=== PATIENT | male | born 1980 | race Caucasian/White ===

== ENCOUNTER 2019-11-10 10:40 | Outpatient (RCR) | payer BC | END 2019-12-05 | disposition home or self-care (01) | LOC: WCC 10:40 | DX: L59.8 Other specified disorders of the skin and subcutaneous tissue related to radiation (principal); K62.7 Radiation proctitis; B20 Human immunodeficiency virus [HIV] disease; Z85.048 Personal history of other malignant neoplasm of rectum, rectosigmoid junction, and anus; R63.4 Abnormal weight loss | CPT/HCPCS: G0277; G0463; 99204 ==

== ENCOUNTER 2019-12-06 15:00 | Outpatient (RCR) | payer BC ==
[2019-12-24] MEDS ORDERED: MESALAMINE1 GM MC (15:39)
[2019-12-24] MEDS ORDERED: PEPTO-BISMOL262 M2 PO (15:39)
[2019-12-24] MEDS ORDERED: TETRACYCLINE H500 MG ORAL (15:39)
[2019-12-24] MEDS ORDERED: BIKTARVY 50-201 EACH PO (15:39)
[2019-12-24] MEDS ORDERED: PANTOPRAZOLE SO40 MG ORAL (15:39)
[2019-12-24] MEDS ORDERED: METRONIDAZOLE250 MG ORAL (15:39)
[2019-12-24] MEDS ORDERED: OMEPRAZOLE20 M2 ORAL (15:39)
[2019-12-24] MEDS ORDERED: FERROUS SULFAT325 MG ORAL (17:56)
== END 2020-01-04 | disposition home or self-care (01) ==
LOC: WCC 15:00
DX: L59.8 Other specified disorders of the skin and subcutaneous tissue related to radiation (principal); K62.7 Radiation proctitis; B20 Human immunodeficiency virus [HIV] disease; Z85.048 Personal history of other malignant neoplasm of rectum, rectosigmoid junction, and anus; Z79.899 Other long term (current) drug therapy
CPT/HCPCS: G0277; G0463

== ENCOUNTER 2019-12-24 15:25 | Emergency (ER) | payer BC ==
[~2019-12-24] VITALS: Ht 167.6 cm; Wt 54.4 kg
--- NOTE | 2019-12-24 15:31 | Emergency Room Report ---
History of Present Illness General Chief Complaint: Seizures Source: Patient Present Illness HPI Patient is a 39-year-old male brought in from a hyperbaric chamber after witnessed seizure. Patient had been undergoing hyperbaric treatment due to radiation proctitis. Had previous history of anal cancer. Had been previously given chemotherapy as well as radiation. Prior history of HIV disease with undetectable viral load. Had no prior history of seizure disorder. Seizure lasted approximately 2 minutes. Patient had promontory feeling of nausea and lightheadedness per tech. Patient had multiple hyperbaric treatments in the past. Allergies: Coded Allergies: No Known Allergies (Unverified , 12/24/19) Patient History Past Medical History: see triage record Reviewed Nursing Documentation: PMH: Agreed; PSxH: Agreed Review of Systems All Other Systems: negative except mentioned in HPI Physical Exam Sp02 EP Interpretation: reviewed, normal General Appearance: normal inspection, well appearing, alert, GCS 15, non-toxic , Chronically Ill Head: atraumatic ENT: normal ENT inspection, hearing grossly normal, normal voice Neck: normal inspection, full range of motion, supple, no bony tend Respiratory: normal inspection, lungs clear, normal breath sounds, no respiratory distress, no retraction, no wheezing Cardiovascular #1: regular rate, rhythm, no edema Gastrointestinal: normal inspection, normal bowel sounds, non tender, soft, no guarding, no hernia Genitourinary: no CVA tenderness Musculoskeletal: normal inspection, back normal, normal range of motion Neurologic: alert, responsive, speech normal, other - Postictal Psychiatric: normal inspection, judgement/insight normal, mood/affect normal Medical Decision Making Diagnostic Impression: Primary Impression: Anemia Additional Impression: Epileptic seizure, generalized ER Course Patient presented after seizure. Differential diagnosis include was not limited to syncopal episode, electrolyte abnormality, hyperbaric induced seizure , among others. Patient was noted to have witnessed seizure in the hyperbaric chamber. Per tech patient had a generalized seizure. And patient's paperwork shows no past medical history of seizures. Because of complexity of patient's case laboratory tests and imaging studies were ordered.EKG interpreted by me showed normal sinus rhythm with a rate of [address] or T wave changes. CT imaging was ordered due to patient's recent seizure activity. Patient's neurologic exam is essentially nonfocal. After a brief. Patient was no longer postictal. He was initially noted to be confused. There is no evidence of tongue trauma. Patient was offered admission which he declined. Laboratory testing was essentially unremarkable. Patient was noted to be somewhat anemic and was given prescription for iron. He states that this is somewhat chronic. Patient was any advised that he would need to follow-up with cardiology as well as neurology. He was advised to return if he had any concerns. The patient is advised to follow up with primary care doctor in 1-2 days. Patient is advised to return if any worsening condition or if any changes in status that are concerning. This report is dictated with [employer] competitive athlete software which may occasionally lead to discrepancies related to use of this software. Labs Test 12/24/19 15:35 White Blood Count 5.9 K/UL (4.8-10.8) Red Blood Count 2.82 M/UL (4.70-6.10) Hemoglobin 9.4 G/DL (14.2-18.0) Hematocrit 31.6 % (42.0-52.0) Mean Corpuscular Volume 112 FL (80-99) Mean Corpuscular Hemoglobin 33.4 PG (27.0-31.0) Mean Corpuscular Hemoglobin Concent 29.8 G/DL (32.0-36.0) Red Cell Distribution Width 16.6 % (11.6-14.8) Platelet Count 144 K/UL (150-450) Mean Platelet Volume 8.3 FL (6.5-10.1) Neutrophils (%) (Auto) 52.1 % (45.0-75.0) Lymphocytes (%) (Auto) 35.6 % (20.0-45.0) Monocytes (%) (Auto) 9.2 % (1.0-10.0) Eosinophils (%) (Auto) 1.8 % (0.0-3.0) Basophils (%) (Auto) 1.4 % (0.0-2.0) Sodium Level 141 MMOL/L (136-145) Potassium Level 3.8 MMOL/L (3.5-5.1) Chloride Level 105 MMOL/L (98-107) Carbon Dioxide Level 22 MMOL/L (21-32) Anion Gap 14 mmol/L (5-15) Blood Urea Nitrogen 14 mg/dL (7-18) Creatinine 1.0 MG/DL (0.55-1.30) Estimat Glomerular Filtration Rate > 60 mL/min (>60) Glucose Level 99 MG/DL (74-106) Calcium Level 8.6 MG/DL (8.5-10.1) Total Bilirubin 0.3 MG/DL (0.2-1.0) Aspartate Amino Transf (AST/SGOT) 21 U/L (15-37) Alanine Aminotransferase (ALT/SGPT) 16 U/L (12-78) Alkaline Phosphatase 110 U/L (46-116) Troponin I 0.037 ng/mL (0.000-0.056) Total Protein 6.9 G/DL (6.4-8.2) Albumin 3.0 G/DL (3.4-5.0) Globulin 3.9 g/dL Albumin/Globulin Ratio 0.8 (1.0-2.7) Lipase 121 U/L (73-393) Thyroid Stimulating Hormone (TSH) 3.305 uiU/mL (0.358-3.740) EKG Diagnostic Results Rate: normal Rhythm: NSR ST Segments: no acute changes - 98 Status: improved Disposition: HOME, SELF-CARE Condition: Improved Scripts Ferrous Sulfate* (FERROUS SULFATE*) 325 Mg Tablet 325 MG ORAL DAILY, #30 TAB 0 Refills Prov: Cachorro Gavin MD 12/24/19 Cachorro Gavin MD Dec 24, 2019 15:31
[2019-12-24] MEDS ORDERED: BIKTARVY 50-201 EACH PO (15:39)
[2019-12-24] MEDS ORDERED: MESALAMINE1 GM MC (15:39)
[2019-12-24] MEDS ORDERED: PEPTO-BISMOL262 M2 PO (15:39)
[2019-12-24] MEDS ORDERED: METRONIDAZOLE250 MG ORAL (15:39)
[2019-12-24] MEDS ORDERED: TETRACYCLINE H500 MG ORAL (15:39)
[2019-12-24] MEDS ORDERED: PANTOPRAZOLE SO40 MG ORAL (15:39)
[2019-12-24] MEDS ORDERED: OMEPRAZOLE20 M2 ORAL (15:39)
[2019-12-24 15:40] VITALS: BP 116/84
[2019-12-24 16:05] VITALS: BP 115/73
[2019-12-24 16:09] LABS: ANION GAP 14 mmol/L (5-15); BLOOD UREA NITROGEN 14 mg/dL (7-18); CALCIUM 8.6 MG/DL (8.5-10.1); CARBON DIOXIDE 22 MMOL/L (21-32); CHLORIDE 105 MMOL/L (98-107); POTASSIUM 3.8 MMOL/L (3.5-5.1); SODIUM 141 MMOL/L (136-145)
[2019-12-24 16:21] LABS: ALANINE AMINOTRANSFERASE 16 U/L (12-78); ALBUMIN/GLOBULIN RATIO 0.8 (1.0-2.7); ALKALINE PHOSPHATASE 110 U/L (46-116); ASPARTATE AMINO TRANSFERASE 21 U/L (15-37); BILIRUBIN,TOTAL 0.3 MG/DL (0.2-1.0)
--- NOTE | 2019-12-24 16:23 | Diagnostic Imaging Report ---
Indication: Seizure, altered mental status Technique: Continuous helical CT scanning of the head was performed without intravenous contrast material. Axial and coronal 5 mm sections were generated. Radiation dose was minimized using automated exposure control Dose: Total Dose Length Product - DLP 1004.[address] Dose Index - CTDIvol(s) 53.4 mGy. Comparison: None FINDINGS: There is no acute intracranial hemorrhage, mass effect or cortical edema. The ventricles, cisterns and sulci are in normal limits for age. Visualized mastoid air cells and paranasal sinuses are unremarkable. No focal lesions of the bony calvarium or soft tissues of the scalp are seen. IMPRESSION: No evidence of acute intracranial hemorrhage, mass effect or cortical edema. MRI may be obtained for more sensitive evaluation as clinically indicated. The CT scanner at [facility] is accredited by the [employer] and the scans are performed using protocols designed to limit radiation exposure to as low as reasonably achievable to attain images of sufficient resolution adequate for diagnostic evaluation.
[2019-12-24 16:29] LABS: HEMATOCRIT 31.6 % (42.0-52.0); HEMOGLOBIN 9.4 G/DL (14.2-18.0); MEAN CORPUSCULAR VOLUME 112 FL (80-99); PLATELET COUNT 144 K/UL (150-450); RED BLOOD COUNT 2.82 M/UL (4.70-6.10); RED CELL DISTRIBUTION WIDTH 16.6 % (11.6-14.8); WHITE BLOOD COUNT 5.9 K/UL (4.8-10.8)
[2019-12-24 16:30] LABS: BASOPHILS % (AUTO) 1.4 % (0.0-2.0); EOSINOPHILS % (AUTO) 1.8 % (0.0-3.0); LYMPHOCYTES % (AUTO) 35.6 % (20.0-45.0); MONOCYTES % (AUTO) 9.2 % (1.0-10.0); NEUTROPHILS % (AUTO) 52.1 % (45.0-75.0)
[2019-12-24] MEDS ORDERED: FERROUS SULFAT325 MG ORAL (17:56)
[2019-12-24 18:03] VITALS: BP 116/72
[2019-12-24 18:11] VITALS: BP 116/72
== END 2019-12-24 18:12 | disposition home or self-care (01) ==
LOC: EMR 15:56
DX: G40.409 Other generalized epilepsy and epileptic syndromes, not intractable, without status epilepticus (principal); D64.9 Anemia, unspecified; C21.0 Malignant neoplasm of anus, unspecified; K62.7 Radiation proctitis; Z21 Asymptomatic human immunodeficiency virus [HIV] infection status; Z92.21 Personal history of antineoplastic chemotherapy; Z92.3 Personal history of irradiation
CPT/HCPCS: 36415; 70450; 80053; 83690; 84443; 84484; 85025; 96360; 99284